=== PATIENT | female | born 1980 | race Hispanic/Latino ===

== ENCOUNTER 2021-07-11 19:21 | Emergency (ER) | payer BC ==
--- OUTSIDE RECORDS SUMMARY | 2021-07-11 19:24 | XMS REPORT | Continuity of Care Document ---
:1980 Author Organization [facility] t Address [facility] [address] [place] [address] Care Team Providers Name Role Phone Doctor Unassigned, Name Attending Clinician Unavailable Pob1, Care Clinic Attending Clinician Unavailable Bebeto HERNANDEZ Attending Clinician Payers Payer Name Policy Type Policy Number Effective Date Expiration Date S ource Problems Condition Condition Condition Status Onset Resolution Last Treating Co mments Source Name Details Category Date Date Treatment Clinician Date No known No known Disease Unive rs active active ity of problems problems [facility] Allergies, Adverse Reactions, Alerts Allergy Allergy Status Severity Reaction(s) Onset Inactive Treating Comm ents Source Name Type Date Date Clinician NO KNOWN Drug Active Univers ALLERGIE Class ity of S [facility] Social History Social Habit Start Date Stop Date Quantity Comments Source Sex Assigned At Uni versity [facility] Exposure to SARS-CoV-2 Not sure [facility] [place] (event) [facility] Smoking Status Start Date Stop Date Source Never smoker [facility] Medications Ordered Filled Start Stop Current Ordering Indication Dosage Frequency Signature Comments Components Source Medication Medication Date Date Medication? Clinician (SIG) Name Name TRI-SPRINTE 2020-0 Yes 1{tbl} Take 1 Un magan C 6-03 tablet by ity of 0.18/0.215/ 00:00: mouth [place] 0.25 mg-35 00 daily. Medical mcg (28) Branch per tablet TRI-SPRINTE 2020-0 Yes 1{tbl} Take 1 Un magan C 6-03 tablet by ity of 0.18/0.215/ 00:00: mouth [place] 0.25 mg-35 00 daily. Medical mcg (28) Branch per tablet lamoTRIgine 2019-0 Yes Univer s 100 mg 5-28 ity of tablet 00:00: [place] 00 [facility] Branch traZODone 2019-0 Yes Univers 50 mg 5-28 ity of tablet 00:00: [place] 00 Medical Branch desvenlafax 2019-0 Yes Univer s ine 5-28 ity of succinate 00:00: [place] 25 mg Tb24 Medical Branch lamoTRIgine 2019- Yes Univer s 100 mg 5-28 ity of tablet 00:00: [place] 00 Medical Branch traZODone 2019-0 Yes Univers 50 mg 5-28 ity of tablet 00:00: [place] [facility] desvenlafax 2019- Yes Univer s ine 5-28 ity of succinate 00:00: [place] 25 mg Tb24 00 Medical Branch FLUoxetine Yes Univers 20 mg 4-06 ity of capsule 00:00: [place] [facility] Branch FLUoxetine 2019- Yes Univers 20 mg 4-06 ity of capsule 00:00: [place] [facility] Vital Signs Vital Name Observation Time Observation Value Comments Source Systolic blood 2020-01-15 14:25:00 109 mm[Hg] Univer sity of pressure [facility] Diastolic blood 2020-01-15 14:25:00 69 mm[Hg] Unive rsity of pressure [facility] Heart rate 2020-01-15 14:25:00 82 /min [facility] Body temperature 2020-01-15 14:25:00 35.89 Amina [facility] Respiratory rate 2020-01-15 14:25:00 18 /min [facility] Body height 2020-01-15 14:25:00 157.5 cm [facility] Body weight 2020-01-15 14:25:00 70.308 kg [facility] BMI 2020-01-15 14:25:00 28.35 kg/m2 [facility] Oxygen saturation in 2020-01-15 14:25:00 98 /min [facility] blood by [facility] [place] Pulse oximetry Branch Procedures This patient has no known procedures. Encounters Start End Encounter Admission Attending Care Care Encounter Source Date/Time Date/Time Type Type Clinicians Facility Department ID 2020-01-17 2020-01-17 Patient Doctor THOMPSON [id number] Univers 00:00:00 00:00:00 Secure Msg Unassigned, CLIFF [id number] ity of [place] [facility] [id number] [place] as [id number] [place] [id number] Branch 2020-01-15 2020-01-15 Outpatient R [facility] [id number] Univers 09:40:00 09:40:[address] [facility] 2020-01-15 2020-01-15 Urgent Pob1, Acute Care Clinic [facility] 1. [id number] Univers 09:14:12 09:34:12 [facility] [id number] ity [facility] [id number] [place] as [place] [id number] [place] [facility] 044 Branch [address] One Results This patient has no known results.
[2021-07-11 20:16] LABS: Absolute Lymphocytes (CBC) 3.9 K/uL (0.7-4.9); Basophils % 0.7 % (0-1.3); Hematocrit 35.2 % (36.0-45.0); Lymphocytes % 39.1 % (15.3-44.8); MPV 7.2 fL (7.6-11.3); RBC Red Blood Cell Count 4.71 M/uL (3.86-4.86)
[2021-07-11 20:23] LABS: Protime INR 0.91
[2021-07-11 20:47] LABS: ALT/SGPT 20 U/L (12-78); AST/SGOT 13 U/L (15-37); Albumin 3.6 g/dL (3.4-5.0); Alkaline Phosphatase 92 U/L (45-117); BUN Blood Urea Nitrogen 6 mg/dL (7-18); Bicarbonate 23 mmol/L (21-32); Bilirubin Direct < 0.1 mg/dL (0-0.2); Bilirubin Total 0.2 mg/dL (0.2-1.0); Glucose Level 102 mg/dL (74-106); Potassium 3.5 mmol/L (3.5-5.1); Protein, Total 8.4 g/dL (6.4-8.2); Sodium Level 137 mmol/L (136-145)
[2021-07-11] MEDS ORDERED: LORazepam 2 MG/ML VIAL ONE (20:54)
[2021-07-11 21:03] LABS: Urine Blood Trace-intact (Negative); Urine Glucose Negative (Negative); Urine Protein Negative (Negative); Urine Specific Gravity <=1.005 (1.005-1.030)
[2021-07-11 21:03] LABS: Barbiturates NEGATIVE (NEGATIVE); Benzodiazepines NEGATIVE (NEGATIVE); Cocaine NEGATIVE (NEGATIVE); METHAMPHETAM NEGATIVE (NEGATIVE); Methadone NEGATIVE (NEGATIVE); Opiates NEGATIVE (NEGATIVE); Phencyclidine NEGATIVE (NEGATIVE); THC Cannibis NEGATIVE (NEGATIVE)
[2021-07-11 21:09] LABS: Urine Specific Gravity/Preg 1.005 (1.005-1.030)
[2021-07-11] MEDS ORDERED: THIAMINE 200 MG/2 ML INJ ONE (21:13)
[2021-07-11] MEDS ORDERED: MULTIVITAMINS 10 ML VIAL (INJ) IV ONE (21:13)
[2021-07-11] MEDS ORDERED: NA CHLORIDE 0.9% 1,000 ML ONE (21:14)
[2021-07-11] MEDS ORDERED: FOLIC ACID 5 MG/ML VIAL ONE (21:14)
[2021-07-12] MEDS ORDERED: NA CHLORIDE 0.9% 1,000 ML ONE (02:45)
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
[2021-07-12 12:08] VITALS: BP 125/72; TEMP 97.6; O2SAT 97
--- NOTE | 2021-07-14 08:16 | EKG ---
Test Date: 2021-07-11 Test Time: 20:23:46 Public Affairs Director: VIANNEY MEASUREMENT RESULTS: Intervals: Rate: 85 CT: 154 QRSD: 78 QT: 372 QTc: 442 [place]: P: 43 CT: 154 QRS: 27 T: 35 INTERPRETIVE STATEMENTS: Normal sinus rhythm Normal ECG No previous ECG available for comparison Electronically Signed On 07-14-21 08:12:38 MACHINE TOOL DESIGNER by Alonso Woodruff
== END 2021-07-12 11:44 ==
LOC: ER 19:21
DX: S10.94XA External constriction of unspecified part of neck, initial encounter (principal); X83.8XXA Intentional self-harm by other specified means, initial encounter; F32.A Depression, unspecified; F17.210 Nicotine dependence, cigarettes, uncomplicated; Z20.822 Contact with and (suspected) exposure to COVID-19
CPT/HCPCS: 96365; 96361; 93005; 85025; 80048; 36415; 80320 ×3; 80329 ×2; 81025; 85610; 80076; 85730; 81003; 80307; 96375; 99285; 96366; U0003; J3411; J7030 ×2